=== PATIENT | female | born 1990 | race Caucasian/White ===

== ENCOUNTER 2018-11-18 10:04 | Emergency (ER) | payer SELFPAY ==
[2018-11-18] VITALS (7 sets, daily range): BP systolic 115–121; BP diastolic 81–87; PULSE 76–90; RESP 9–19; TEMP 37.3; O2SAT 96–99
--- NOTE | 2018-11-18 10:43 | W.ED.GENAD ---
Discharge Plan Disposition Patient Disposition: HOME Discharge Details Chief Complaint: Chest Pain Clinical Impression: Bronchitis Primary Care Provider: None,None ED Provider: Dustin Linn Home Meds and New Rx's Prescriptions: New azithromycin 250 mg tablet 250 mg PO DAILY 5 Days Qty: 5 RF: 0 Discharge Instructions Instructions: Acute Bronchitis (ED) Additional Instructions: Please drink plenty of fluids and allow for plenty of rest over the next 1 week. Please take full course of antibiotic as prescribed. Please contact your primary care physician to arrange follow-up. Return to the ER for any worsening or new concerning symptoms. Medical Decision Making 28-year-old female here with productive cough over the past 3-4 days and associated pleuritic chest discomfort as well as recent fevers. 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 Lungs clear on exam, saturating well no respiratory distress. Recommended obtaining chest x-ray given her pleuritic discomfort and to assess for underlying disease not appreciated on exam. Patient refuses x-ray. I explained my concerns to the patient and reason for imaging. Patient verbalized understanding of my concerns and notes that because she lacks insurance she will not consent to imaging. I again reiterated my concerns and recommendation that we obtain imaging to assess for severe disease and she refused. Patient has decisional making capacity. Patient is being seen by another provider here and noted to have bronchospasm and being treated with albuterol as well as azithromycin. Given concern for bacterial process, I will treat with azithromycin. HPI General Mode of arrival: ambulatory. Date/Time Provider Initiated Documentation: 11/18/18 10:19. Limitations to Documentation: no limitations. Information obtained by: patient. HPI Narrative: 28yo f here with chief complaint of cough. Patient notes she has been coughing for the past 3-4 days. Cough is intermittently productive of green sputum. She had recent fever but no fever today. She has associated chest tightness. She also notes associated runny nose. , who is a school guard locally, is also sick with similar symptoms. Patient thinks she has some allergy to cats and was recently in with relatives who have pet cats and she had a wheeze while staying there. Wheeze has resolved. Related Data Home Medications Medication Instructions Recorded Confirmed azithromycin 250 mg PO DAILY 5 Days #5 tab 11/18/18 Previous Rx's Medication Instructions Recorded azithromycin 250 mg PO DAILY 5 Days #5 tab 11/18/18 Allergies Allergy/AdvReac Type Severity Reaction Status Date / Time No Known Allergies Allergy Unverified 11/18/18 10:19 General Stated Complaint: Chest Pain NITA: 2 Review of Systems Review of Systems All systems reviewed & are unremarkable except as noted in HPI and below Cardiovascular Denies dyspnea Respiratory Reports cough and Denies dyspnea PFSH Social History Smoking/Tobacco Use Status: Never Exam Const General: cooperative and no acute distress HENMT Head: normocephalic and atraumatic Mouth: moist mucous membranes Throat: posterior oropharynx normal Eyes Conjunctivae: normal conjunctivae Sclera: normal sclerae EOM: EOM intact bilaterally Neck Neck: trachea midline and supple Resp Effort & Inspection: cough Quality of cough: productive Auscultation: clear to auscultation bilaterally, no rales, no rhonchi and no wheezes Cardio Jugular venous pressure: no JVD Rate: regular rate and not tachycardic Rhythm: regular rhythm GI Palpation: soft, not firm, no guarding, no masses, not rigid and nontender Skin General skin exam: no rashes or lesions noted Neuro General: alert, awake, oriented x3 and tone normal Extrem General: no edema Psych Appearance: grossly normal Mental Status: mental status grossly normal Speech and Movement: speech and movement normal Course Vital Signs Temperature 37.3 C 11/18/18 10:22 Pulse 88 11/18/18 10:22 Respiratory Rate 15 11/18/18 10:22 Blood Pressure 121/87 11/18/18 10:22 Pulse Oximetry 96 11/18/18 10:22 Temperature 37.3 C 11/18/18 10:22 Temperature Source Temporal Artery Scan 11/18/18 10:22 Pulse 88 11/18/18 10:22 Respiratory Rate 15 11/18/18 10:22 Respiratory Effort Non-Labored 11/18/18 10:24 Blood Pressure 121/87 11/18/18 10:22 Blood Pressure Position Supine 11/18/18 10:22 Pulse Oximetry 96 11/18/18 10:22 Oxygen Delivery Method Room Air 11/18/18 10:22 Oxygen Flow Rate 0 11/18/18 10:22 Pain Level 5 11/18/18 10:22
--- NOTE | 2018-11-18 10:56 | ED.GENADUL_ITS ---
Discharge Plan Disposition Patient Disposition: HOME Discharge Details Chief Complaint: Chest Pain Clinical Impression: Bronchitis Primary Care Provider: None,None ED Provider: Dustin Linn Home Meds and New Rx's Prescriptions: New azithromycin 250 mg tablet 250 mg PO DAILY 5 Days Qty: 5 RF: 0 Discharge Instructions Instructions: Acute Bronchitis (ED) Additional Instructions: Please drink plenty of fluids and allow for plenty of rest over the next 1 week. Please take full course of antibiotic as prescribed. Please contact your primary care physician to arrange follow-up. Return to the ER for any worsening or new concerning symptoms. Medical Decision Making 28-year-old female here with productive cough over the past 3-4 days and associated pleuritic chest discomfort as well as recent fevers. 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 Lungs clear on exam, saturating well no respiratory distress. Recommended obtaining chest x-ray given her pleuritic discomfort and to assess for underlying disease not appreciated on exam. Patient refuses x-ray. I explained my concerns to the patient and reason for imaging. Patient verbalized understanding of my concerns and notes that because she lacks insurance she will not consent to imaging. I again reiterated my concerns and recommendation that we obtain imaging to assess for severe disease and she refused. Patient has decisional making capacity. Patient is being seen by another provider here and noted to have bronchospasm and being treated with albuterol as well as azithromycin. Given concern for bacterial process, I will treat with azithromycin. HPI General Mode of arrival: ambulatory . Date/Time Provider Initiated Documentation: 11/18/18 10:19 . Limitations to Documentation: no limitations . Information obtained by: patient . HPI Narrative: 28yo f here with chief complaint of cough. Patient notes she has been coughing for the past 3-4 days. Cough is intermittently productive of green sputum. She had recent fever but no fever today. She has associated chest tightness. She also notes associated run ny nose. , who is a armed guard locally, is also sick with similar symptoms. Patient thinks she has some allergy to cats and was recently in with relatives who have pet cats and she had a wheeze while staying there. Wheeze has resolved. Related Data Home Medications Medication Instructions Recorded Confirmed azithromycin 250 mg PO DAILY 5 Days #5 tab 11/18/18 Previous Rx's Medication Instructions Recorded azithromycin 250 mg PO DAILY 5 Days #5 tab 11/18/18 Allergies Allergy/AdvReac Type Severity Reaction Status Date / Time No Known Allergies Allergy Unverified 11/18/18 10:19 General Stated Complaint: Chest Pain NITA: 2 Review of Systems Review of Systems All systems reviewed & are unremarkable except as noted in HPI and below Cardiovascular Denies dyspnea Respiratory Reports cough and Denies dyspnea PFSH Social History Smoking/Tobacco Use Status: Never Exam Const General: cooperative and no acute distress HENMT Head: normocephalic and atraumatic Mouth: moist mucous membranes Throat: posterior oropharynx normal Eyes Conjunctivae: normal conjunctivae Sclera: normal sclerae EOM: EOM intact bilaterally Neck Neck: trachea midline and supple Resp Effort & Inspection: cough Quality of cough: productive Auscultation: clear to auscultation bilaterally, no rales, no rhonchi and no wheezes Cardio Jugular venous pressure: no JVD Rate: regular rate and not tachycardic Rhythm: regular rhythm GI Palpation: soft, not firm, no guarding, no masses, not rigid and nontender Skin General skin exam: no rashes or lesions noted Neuro General: alert, awake, oriented x3 and tone normal Extrem General: no edema Psych Appearance: grossly normal Mental Status: mental status grossly normal Speech and Movement: speech and movement normal Course Vital Signs Temperature 37.3 C 11/18/18 10:22 Pulse 88 11/18/18 10:22 Respiratory Rate 15 11/18/18 10:22 Blood Pressure 121/87 11/18/18 10:22 Pulse Oximetry 96 11/18/18 10:22 Temperature 37.3 C 11/18/18 10:22 Temperature Source Temporal Artery Scan 11/18/18 10:22 Pulse 88 11/18/18 10:22 Respiratory Rate 15 11/18/18 10:22 Respiratory Effort Non-Labored 11/18/18 10:24 Blood Pressure 121/87 11/18/18 10:22 Blood Pressure Position Supine 11/18/18 10:22 Pulse Oximetry 96 11/18/18 10:22 Oxygen Delivery Method Room Air 11/18/18 10:22 Oxygen Flow Rate 0 11/18/18 10:22 Pain Level 5 11/18/18 10:22
--- NOTE | 2018-11-19 07:56 | PDOC.ERCMPRO ---
Care Management Progress Note 11/19-Dr. 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 Patient also needs assistance with insurance. Referral faxed to [facility] caret[facility] at [facility] this morning for f/u appt and assistance with insurance.
--- NOTE | 2018-11-19 07:58 | CMPROGNOTE_ITS ---
Care Management Progress Note 11/19-Dr. 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 Patient also needs assistance with insurance. Referral faxed to chronic personal care aid at [facility] this morning for f/u appt and assistance with insurance.
== END 2018-11-18 11:00 | disposition home or self-care (01) ==
PROVIDERS: Emergency Provider Student in an Organized Health Care Education/Training Program
DX: J20.9 Acute bronchitis, unspecified (principal); Z53.29 Procedure and treatment not carried out because of patient's decision for other reasons
CPT/HCPCS: 99283